=== PATIENT | male | born 1950 | race Caucasian/White ===

== ENCOUNTER 2018-01-03 07:14 | Day surgery (SDC) | payer BC ==
[2018-01-03] MEDS ORDERED: PROPOFOL 500 MG/50 ML EMU IV ONE (07:57)
[2018-01-03] MEDS ORDERED: LIDOCAINE HCL 1% MPF 30 SOL ONE (07:57)
[2018-01-03 09:17] VITALS: BP 133/64; PULSE 64; RESP 20; TEMP 97; O2SAT 97
== END 2018-01-03 09:25 | disposition home or self-care (01) ==
LOC: SURG 07:14
PROVIDERS: ATTEND Surgery
DX: Z12.11 Encounter for screening for malignant neoplasm of colon (principal); Z86.010 Personal history of colon polyps; D12.2 Benign neoplasm of ascending colon; D12.4 Benign neoplasm of descending colon; K57.32 Diverticulitis of large intestine without perforation or abscess without bleeding
CPT/HCPCS: 99001; J2001; J2704